=== PATIENT | female | born 1965 | race Caucasian/White ===

== ENCOUNTER 2018-04-29 21:45 | Inpatient (IN) | payer BC ==
--- NOTE | 2018-04-29 21:48 | PDOC ---
History of Present Illness - General Chief Complaint: Altered Mental Status Stated Complaint: CONFUSED Time Seen by Provider: 04/29/18 21:48 History Source: Patient, Family (son) - History of Present Illness Initial Comments: 04/29/18 22:50 53F PMHx anxiety presenting with son because of concerns about AMS. Son saw his mother last normal at approx 4pm, then went to dinner with a colleague (told his mother where he was going) - upon his return, he found her to be confused, asking repetitive questions and having difficulty retaining information for more than 1-2 minutes. Was in usual state of health prior to this evening. No fever, no infectious sxs. 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 Pt has no insight into her AMS. Denies trauma. 04/29/18 22:54 Timing/Duration: 4-6 hours Past History - Past Medical History Allergies/Adverse Reactions: Allergies Allergy/AdvReac Type Severity Reaction Status Date / Time No Known Allergies Allergy Verified 04/29/18 21:55 Home Medications: Ambulatory Orders Clonazepam [Klonopin] 0.5 mg PO PRN 04/29/18 Irbesartan 04/29/18 Rosuvastatin Calcium [Crestor] 5 mg PO DAILY 04/29/18 Review of Systems - Review of Systems Able to Perform ROS?: Yes Constitutional: No: Chills, Fever HEENTM: No: Blurred Vision Respiratory: No: Cough, Shortness of Breath Cardiac (ROS): No: Chest Pain, Irregular Heart Rate, Lightheadedness, Palpitations : No: Burning, Dysuria Musculoskeletal: No: Back Pain Neurological: No: Headache, Numbness, Seizure, Tingling, Tremors, Weakness, Unsteady Gait, Ataxia, Dizziness Psychiatric: Yes: Anxiety *Physical Exam - Physical Exam General Appearance: Yes: Appropriately Dressed, Other (anxious appearing) HEENT: positive: EOMI, Normal ENT Inspection, Normal Voice, Symmetrical Neck: positive: Trachea midline Respiratory/Chest: positive: Lungs Clear, Normal Breath Sounds. negative: Respiratory Distress Cardiovascular: positive: Regular Rhythm, Regular Rate Gastrointestinal/Abdominal: positive: Soft. negative: Tender, Organomegaly, Distended, Guarding Musculoskeletal: positive: Normal Inspection Neurologic: positive: sugar drier II-XII NML intact, Fully Oriented, Alert, Normal Response, Motor Strength 03/22 ED Treatment Course - LABORATORY CBC & Chemistry Diagram: 04/29/18 22:35 04/29/18 22:35 Medical Decision Making - Medical Decision Making 04/29/18 22:56 Pt presenting to ER with concerns from son about AMS - perseverating and confused at home, last normal approx 4:30pm. No fever, +elevated BP, anxious appearing and requesting to leave. - CTH - labs - u tox - UA - reassess, if still altered will likely require admission for AMS 04/30/18 00:42 Pt still AOx3, however is confused - repeatedly asks the same questions, forgets that she has met providers and had extensive conversations. BP elevated , concern for HTN emergency/possibly PRES. Will require neuro consult/ICU admission. Will give labetalol IVP. 04/30/18 00:55 Spoke to Maninder, ICU [facility] at [facility] - accepted to ICU for hypertensive emergency, AMS. *DC/Admit/Observation/Transfer Diagnosis at time of Disposition: Hypertensive encephalopathy - Discharge Dispostion Condition at time of disposition: Stable Decision to Admit order: Yes - Referrals - Patient Instructions - Post Discharge Activity
[2018-04-29 22:47] LABS: URINE APPEARANCE Clear; URINE BILIRUBIN Negative (NEGATIVE); URINE BLOOD Negative (NEGATIVE); URINE GLUCOSE (UA) Negative (NEGATIVE); URINE KETONE Negative (NEGATIVE); URINE NITRITE Negative (NEGATIVE); URINE PROTEIN Negative (NEGATIVE); URINE UROBILINOGEN 0.2 (0.2-1.0)
[2018-04-29 22:48] LABS: URINE COLOR YELLOW; URINE LEUK ESTERASE TRACE (NEGATIVE)
[2018-04-29 22:57] LABS: URINE BACTERIA FEW /hpf (NEGATIVE); URINE RBC 0-2 /hpf (0-3)
[2018-04-29 22:58] LABS: BASO % 0.6 % (0-2.0); EOS % 0.8 % (0-4.5); HEMATOCRIT 45.8 % (32.4-45.2); HEMOGLOBIN 15.5 GM/dl (10.7-15.3); LYMPH % 33.9 % (8-40); MCH 28.3 pg (25.7-33.7); MCHC 33.8 g/dl (32.0-36.0); MEAN CELL VOLUME 83.8 fl (80-96); MEAN PLT VOLUME 8.6 fl (7.5-11.1); MONO % 7.8 % (3.8-10.2); NEUT % 56.9 % (42.8-82.8); PLATELET COUNT 318 K/MM3 (134-434); RBC 5.47 M/mm3 (3.60-5.2); RDW 12.4 % (11.6-15.6); WHITE BLOOD COUNT 8.7 K/mm3 (4.0-10.8)
[2018-04-29 23:03] LABS: INR 1.02 (0.82-1.09); PROTHROMBIN TIME (PATIENT) 11.4 SEC (10.2-13.0)
[2018-04-29 23:08] LABS: ALBUMIN 3.9 g/dl (3.5-5.0); ALK PHOS 56 U/L (32-92); ANION GAP 9 (8-16); BILIRUBIN,TOTAL 1.5 mg/dl (0.2-1.0); BLOOD UREA NITROGEN 17 mg/dl (7-18); CALCIUM 9.4 mg/dl (8.4-10.2); CHLORIDE 104 mmol/L (98-107); CO2 25 mmol/L (22-28); CREATININE 0.9 mg/dl (0.6-1.3); GLUCOSE,RANDOM 121 mg/dl (74-106); SGOT/AST 22 U/L (10-42); SGPT/ALT 43 U/L (10-40); SODIUM 138 mmol/L (136-145); TOT PROT 6.6 g/dl (6.4-8.3)
[2018-04-30] MEDS ORDERED: LABETALOL HCL 5 MG/1 ML (100MG/20 ML VIAL) IVPUSH ONE (00:41)
[2018-04-30] MEDS ORDERED: LABETALOL HCL 5 MG/1 ML (100MG/20 ML VIAL) ONE (00:46)
[2018-04-30 00:52] LABS: COCAINE, UR NEGATIVE ng/ml (CUTOFF=300); METHADONE, UR NEGATIVE ng/ml (CUTOFF=300); OPIATES, URI NEGATIVE ng/ml (CUTOFF=300); PHENCYCLIDINE,URINE NEGATIVE ng/ml (CUTOFF=25); URINE AMPHETAMINES NEGATIVE ng/ml (CUTOFF=500); URINE BARBITURATES NEGATIVE ng/ml (CUTOFF=200); URINE BENZODIAZEPINES NEGATIVE ng/ml (CUTOFF=200)
[2018-04-30 03:08] VITALS: BMI 18.1
[2018-04-30] MEDS ORDERED: LACTATED RINGERS SOLUTION 1,000 ML/1,000 ML INFUS.BAG IV STA ×2 (03:37→04:24)
[2018-04-30] MEDS ORDERED: clonazePAM 2 MG TABLET PO ONE (03:39)
[2018-04-30] MEDS ORDERED: clonazePAM 0.5 MG TABLET PO ONE (03:45)
--- NOTE | 2018-04-30 03:51 | CONSULT ---
Consult Consult Specialty:: PULM/CCM Referred by:: Dr. Ronald Henson Reason for Consultation:: Diarrhea/Dehydration/Delerium - History of Present Illness Chief Complaint: AMS History of Present Illness: Ms. Hernandez is a 53 y/o woman w/ HTN, HL, & anxiety who presents to [facility] w/ AMS. A/p report pt was found by son at home delirious: asking repetitive questions and having difficulty retaining information for more than 1-2 minutes. No focal neuro deficit. Of note pt is on Day 07/28 Biaxin for bronchitis which is giving her profuse diarrhea. In addition, the pt has recently completed a 5 day course of Pred for her bronchitis. The pt also states that she was using Et-OH 4 nights in the past & fell & hit her head. The pt also endorses extra stress in her life. NCHCT negative. ICU bed requested w/ c/f PRES vs HTN emergency vs viral encephalopathy. Of note, pt reveals that throughout the past few nights she has had cramping in her calfs. U/a arrival to the ICU pt CA+OX3 w/ no sign of AMS. - History Source History Provided By: Patient, Family Member, Medical Record Limitations to Obtaining History: No Limitations - Past Medical History [employer]: Yes: Other (REPORTED AMS) Cardio/Vascular: Yes: HTN. No: CAD Pulmonary: Yes: Bronchitis Gastrointestinal: Yes: Other (diarrhea) Hepatobiliary: No: Cirrhosis Renal/: No: Renal Inusuff ...: No Heme/Onc: No: Anemia Infectious Disease: No: HIV Psych: Yes: Anxiety Rheumatology: No: Rheumatoid Arthritis Endocrine: No: Diabetes Mellitus - Alcohol/Substance Use Hx Alcohol Use: Yes History of Substance Use: reports: None - Smoking History Smoking history: Current some day smoker Have you smoked in the past 12 months: Yes - Social History Usual Living Arrangement: With Child ADL: Independent Place of : [place] History of Recent Travel: No Home Medications - Allergies Allergies/Adverse Reactions: Allergies Allergy/AdvReac Type Severity Reaction Status Date / Time No Known Allergies Allergy Verified 04/29/18 21:55 - Home Medications Home Medications: Ambulatory Orders Clonazepam [Klonopin] 0.5 mg PO PRN 04/29/18 Irbesartan 04/29/18 Rosuvastatin Calcium [Crestor] 5 mg PO DAILY 04/29/18 Family Disease History - Family Disease History Family History: Unremarkable Review of Systems - Review of Systems Constitutional: reports: No Symptoms Eyes: reports: No Symptoms HENT: reports: No Symptoms, Ocular Prosthesis Neck: denies: Decreased ROM, Pain on Movement, Stiffness Cardiovascular: reports: No Symptoms Respiratory: reports: Cough. denies: SOB Gastrointestinal: reports: Abdominal Pain, Diarrhea Genitourinary: reports: No Symptoms Breasts: reports: No Symptoms Reported Musculoskeletal: reports: Muscle Cramps Neurological: reports: Confusion, Headache Endocrine: reports: No Symptoms Hematology/Lymphatic: reports: No Symptoms Psychiatric: reports: Anxiety Pain Intensity: 2 Physical Exam Vital Signs: Vital Signs Temperature 97.1 F L 04/30/18 02:15 Pulse Rate 80 04/30/18 02:15 Respiratory Rate 17 04/30/18 02:15 Blood Pressure 146/98 04/30/18 02:15 O2 Sat by Pulse Oximetry (%) 98 04/30/18 02:15 Constitutional: Yes: Well Nourished, No Distress, Calm Eyes: Yes: WNL, Conjunctiva Clear, EOM Intact HENT: Yes: WNL, Atraumatic, Normocephalic Neck: Yes: WNL, Supple, Trachea Midline Cardiovascular: Yes: Regular Rate and Rhythm Respiratory: Yes: WNL, Regular, CTA Bilaterally Gastrointestinal: Yes: Hyperactive Bowel Sounds ...Rectal Exam: Yes: Deferred Renal/: No: CVA Tenderness - Left, CVA Tenderness - Right, Polyuria Breast(s): Yes: WNL Musculoskeletal: Yes: Muscle Pain. No: Back Pain, Joint Stiffness Extremities: Yes: WNL Edema: No Peripheral Pulses WNL: Yes Integumentary: Yes: WNL Neurological: Yes: WNL, Alert, Oriented ...Motor Strength: WNL Psychiatric: Yes: WNL Labs: CBC, BMP 04/29/18 22:35 04/29/18 22:35 Imaging - Results Chest X-ray: Image Reviewed (Clear (My Read)) Cat Scan: Report Reviewed (04/29: No gross evidence of a focal intracranial lesion or hemorrhage is seen.) EKG: Image Reviewed (RSR @ 82 w/o ectopy, possible L atrial enlargement, qu'ed out in V1 & V2 (unknown age), no specific ST or T-wave aberration, QTc = 434ms ( My Read).) Assessment/Plan ASSESS: This is a 53 y/o woman w/ HTN, HL, & anxiety who presents now w/ delirium-like AMS in the setting of Abx, diarrhea, & heavy stress m/l combo of dehydration/diarrhea & stress. PLAN: -D/c Biaxin -SuppFio2 prn for an SpO2 FiO2 > 92% -Nebs -IVFs -Send C-Diff -F/u clxrs -Monitor UOP -Replete e-lytes prn -Consider MRI Brain -NEURO -Cont irbesartan -Cont Crestor -Can have Klonopin prn for her anxiey -DVT ppx -D/c --> Floor DGL, ACNP-BC [facility] ICU PULM/CCM [id number]
--- NOTE | 2018-04-30 07:15 | PN ---
Physical Exam: SUBJECTIVE: Patient seen and examined at bed side in ICU presented with AMS , last time seen on her usual state of health around 4.30 pm yesterday had bronchitis last week and treated with biaxin and steroids that affect her sleep and increased her anxiety had fell last Saturday and hit her head images came back negative from another facility hasa history of anxiety and follow up with her psychiatrist denies any headache dizziness light headedness fever , chills, N/V/ but report diarrheax4 for 7 days OBJECTIVE: Vital Signs Period Temp Pulse Resp BP Sys/Marc Pulse Ox Last 24 Hr 97.1 F-98.5 F 71-100 15-20 133-173/88-111 98-100 GENERAL:AAOx3 in NAD HEAD: NC/AT EYES: PERRL,EOMI , sclera anicteric, conjunctiva clear. ENT: Ears normal, nares patent, oropharynx clear without exudates, moist mucous membranes. NECK: Trachea midline, full range of motion, supple. LUNGS: Breath sounds equal, clear to auscultation bilaterally, no wheezes, no crackles, no accessory muscle use. HEART: Regular rate and rhythm, S1, S2 without murmur, rub or gallop. ABDOMEN: Soft, nontender, nondistended, normoactive bowel sounds, no guarding, no rebound, EXTREMITIES: 2+ pulses, warm, well-perfused, no edema. NEUROLOGICAL: Cranial nerves II through XII grossly intact. Normal speech, normal gait , rombergg negative , nose finger negative PSYCH: Normal mood, normal affect. SKIN: Warm, dry, normal turgor, Laboratory Results - last 24 hr 04/29/18 04/29/18 04/29/18 22:35 22:35 22:35 WBC 8.7 RBC 5.47 H Hgb 15.5 H Hct 45.8 H MCV 83.8 MCH 28.3 MCHC 33.8 RDW 12.4 Plt Count 318 MPV 8.6 Absolute Neuts (auto) 4.9 Neutrophils % 56.9 Lymphocytes % 33.9 Monocytes % 7.8 Eosinophils % 0.8 Basophils % 0.6 PT with INR 11.4 INR 1.02 Sodium 138 Potassium 4.0 Chloride 104 Carbon Dioxide 25 Anion Gap 9 BUN 17 Creatinine 0.9 Creat Clearance w eGFR > 60 Random Glucose 121 H Calcium 9.4 Total Bilirubin 1.5 H AST 22 ALT 43 H Alkaline Phosphatase 56 Total Protein 6.6 Albumin 3.9 Urine Color Urine Appearance Urine pH Ur Specific [place] Urine Protein Urine Glucose (UA) Urine Ketones Urine Blood Urine Nitrite Urine Bilirubin Urine Urobilinogen Ur Leukocyte Esterase Urine RBC Urine WBC Urine Bacteria Opiates Screen Methadone Screen Barbiturate Screen Phencyclidine Screen Ur Amphetamines Screen MDMA (Ecstasy) Screen Benzodiazepines Screen Cocaine Screen U Marijuana (THC) Screen 04/29/18 04/29/18 22:42 22:42 WBC RBC Hgb Hct MCV MCH MCHC RDW Plt Count MPV Absolute Neuts (auto) Neutrophils % Lymphocytes % Monocytes % Eosinophils % Basophils % PT with INR INR Sodium Potassium Chloride Carbon Dioxide Anion Gap BUN Creatinine Creat Clearance w eGFR Random Glucose Calcium Total Bilirubin AST ALT Alkaline Phosphatase Total Protein Albumin Urine Color Yellow Urine Appearance Clear Urine pH 7.0 Ur Specific [place] 1.015 Urine Protein Negative Urine Glucose (UA) Negative Urine Ketones Negative Urine Blood Negative Urine Nitrite Negative Urine Bilirubin Negative Urine Urobilinogen 0.2 Ur Leukocyte Esterase Trace H Urine RBC 0-2 Urine WBC 2-5 Urine Bacteria Few Opiates Screen Negative Methadone Screen Negative Barbiturate Screen Negative Phencyclidine Screen Negative Ur Amphetamines Screen Negative MDMA (Ecstasy) Screen Negative Benzodiazepines Screen Negative Cocaine Screen Negative U Marijuana (THC) Screen Negative CBC, BMP 04/29/18 22:35 04/29/18 22:35 ASSESSMENT/PLAN: 53 year old female with pmhx of anxiety, HTN, HLD, presented to the ED by her son due to AMS , last seen on her [facility] state of health around 4.30 pm yesterday, was admitted to [facility] for further evaluation Neurology #AMS resolved due to med side effects prednison and Biaxin vs electrolytes imbalance vs meningitis un likely vs residual head trauma vs TIA vs panic attack AAOx3 , neck supple , dc prednison and biaxin Monitor BMP IV fluids C.diff (pt had diarrhea last week 4 times aday water non blood no mucus ) Vt head negative for acute pathology f/u with her psychiatrist for anxiety no need for LP for now # GI Diarrhea 4 times a day for almost a week , no BM since last night IV fluids C diff Stool ova and paracytes f/u as out pt with her PCP #Cardiology HTN presented with BP 173/111 labetolol 100 mg po once (we don't have irbesartan in house ) # Insominia on klonapine 0.5 HS Sleep hygiene excercise daily #FEN F: NS @ 100 CC/hr E: monitor N: low sodium diet #Proph DVts: SCDS both legs with early ambulation GI: no need for now #Dispo transfer to the floor , possible DC home today Visit type - Emergency Visit Emergency Visit: Yes ED Registration Date: 04/30/18 Care time: The patient presented to the Emergency Department on the above date and was hospitalized for further evaluation of their emergent condition. - New Patient This patient is new to me today: Yes Date on this admission: 04/30/18 - Critical Care Critical Care patient: Yes Total Critical Care Time (in minutes): 45 Critical Care Statement: The care of this patient involved high complexity decision making to prevent further life threatening deterioration of the patient 's condition and/or to evaluate & treat vital organ system(s) failure or risk of failure.
--- NOTE | 2018-04-30 08:14 | HP ---
CHIEF COMPLAINT: PCP: HISTORY OF PRESENT ILLNESS: Ms. Hernandez is a 53 y/o woman w/ HTN, HL, & anxiety who presents to [facility] w/ AMS. A/p report pt was found by son at home delirious: asking repetitive questions and having difficulty retaining information for more than 1-2 minutes. No focal neuro deficit. Of note pt is on Day 9 Biaxin for bronchitis which is giving her profuse diarrhea. In addition, the pt has recently completed a 5 day course of Pred for her bronchitis. The pt also states that she was using Et-OH 4 nights in the past & fell & hit her head. The pt also endorses extra stress in her life. NCHCT negative. ICU bed requested w/ c/f PRES vs HTN emergency vs viral encephalopathy. Of note, pt reveals that throughout the past few nights she has had cramping in her calfs. U/a arrival to the ICU pt CA+OX3 w/ no sign of AMS. ER course was notable for: (1) (2) (3) Recent Travel: PAST MEDICAL HISTORY: PAST SURGICAL HISTORY: Social History: Smoking: Alcohol: Drugs: Family History: Allergies No Known Allergies Allergy (Verified 04/29/18 21:55) HOME MEDICATIONS: Home Medications Medication Instructions Recorded Clonazepam [Klonopin] 0.5 mg PO PRN 04/29/18 Irbesartan 04/29/18 Rosuvastatin Calcium [Crestor] 5 mg PO DAILY 04/29/18 REVIEW OF SYSTEMS CONSTITUTIONAL: Absent: fever, chills, diaphoresis, generalized weakness, malaise, loss of appetite, weight change HEENT: Absent: rhinorrhea, nasal congestion, throat pain, throat swelling, difficulty swallowing, mouth swelling, ear pain, eye pain, visual changes CARDIOVASCULAR: Absent: chest pain, syncope, palpitations, irregular heart rate, lightheadedness , peripheral edema RESPIRATORY: Absent: cough, shortness of breath, dyspnea with exertion, orthopnea, wheezing, stridor, hemoptysis GASTROINTESTINAL: Absent: abdominal pain, abdominal distension, nausea, vomiting, diarrhea, constipation, melena, hematochezia GENITOURINARY: Absent: dysuria, frequency, urgency, hesitancy, hematuria, flank pain, genital pain MUSCULOSKELETAL: Absent: myalgia, arthralgia, joint swelling, back pain, neck pain SKIN: Absent: rash, itching, pallor HEMATOLOGIC/IMMUNOLOGIC: Absent: easy bleeding, easy bruising, lymphadenopathy, frequent infections ENDOCRINE: Absent: unexplained weight gain, unexplained weight loss, heat intolerance, cold intolerance NEUROLOGIC: Absent: headache, focal weakness or paresthesias, dizziness, unsteady gait, seizure, mental status changes, bladder or bowel incontinence PSYCHIATRIC: Absent: anxiety, depression, suicidal or homicidal ideation, hallucinations. PHYSICAL EXAMINATION Vital Signs - 24 hr 04/29/18 04/30/18 04/30/18 22:00 00:41 01:12 Temperature 98.5 F Pulse Rate 100 H Pulse Rate [ 87 83 Right Radial] Respiratory 16 20 16 Rate Blood Pressure 143/104 Blood Pressure 173/111 140/100 [Right Arm] O2 Sat by Pulse 100 100 100 Oximetry (%) 04/30/18 04/30/18 04/30/18 02:15 04:00 06:06 Temperature 97.1 F L 97.2 F L Pulse Rate 80 71 71 Pulse Rate [ Right Radial] Respiratory 17 15 15 Rate Blood Pressure 146/98 133/91 136/88 Blood Pressure [Right Arm] O2 Sat by Pulse 98 Oximetry (%) 04/30/18 07:22 Temperature Pulse Rate 79 Pulse Rate [ Right Radial] Respiratory 17 Rate Blood Pressure 160/102 Blood Pressure [Right Arm] O2 Sat by Pulse 100 Oximetry (%) GENERAL: Awake, alert, and fully oriented, in no acute distress. HEAD: Normal with no signs of trauma. EYES: Pupils equal, round and reactive to light, extraocular movements intact, sclera anicteric, conjunctiva clear. No lid lag. EARS, NOSE, THROAT: Ears normal, nares patent, oropharynx clear without exudates. Moist mucous membranes. NECK: Normal range of motion, supple without lymphadenopathy, JVD, or masses. LUNGS: Breath sounds equal, clear to auscultation bilaterally. No wheezes, and no crackles. No accessory muscle use. HEART: Regular rate and rhythm, normal S1 and S2 without murmur, rub or gallop. ABDOMEN: Soft, nontender, not distended, normoactive bowel sounds, no guarding, no rebound, no masses. No hepatomegaly or splenomegaly. MUSCULOSKELETAL: Normal range of motion at all joints. No bony deformities or tenderness. No CVA tenderness. UPPER EXTREMITIES: 2+ pulses, warm, well-perfused. No cyanosis. No clubbing. No peripheral edema. LOWER EXTREMITIES: 2+ pulses, warm, well-perfused. No calf tenderness. No peripheral edema. NEUROLOGICAL: Cranial nerves II-XII intact. Normal speech. Normal gait. PSYCHIATRIC: Cooperative. Good eye contact. Appropriate mood and affect. SKIN: Warm, dry, normal turgor, no rashes or lesions noted, normal capillary refill. Laboratory Results - last 24 hr 04/29/18 04/29/18 04/29/18 22:35 22:35 22:35 WBC 8.7 RBC 5.47 H Hgb 15.5 H Hct 45.8 H MCV 83.8 MCH 28.3 MCHC 33.8 RDW 12.4 Plt Count 318 MPV 8.6 Absolute Neuts (auto) 4.9 Neutrophils % 56.9 Lymphocytes % 33.9 Monocytes % 7.8 Eosinophils % 0.8 Basophils % 0.6 PT with INR 11.4 INR 1.02 Sodium 138 Potassium 4.0 Chloride 104 Carbon Dioxide 25 Anion Gap 9 BUN 17 Creatinine 0.9 Creat Clearance w eGFR > 60 Random Glucose 121 H Calcium 9.4 Total Bilirubin 1.5 H AST 22 ALT 43 H Alkaline Phosphatase 56 Total Protein 6.6 Albumin 3.9 Urine Color Urine Appearance Urine pH Ur Specific [place] Urine Protein Urine Glucose (UA) Urine Ketones Urine Blood Urine Nitrite Urine Bilirubin Urine Urobilinogen Ur Leukocyte Esterase Urine RBC Urine WBC Urine Bacteria Opiates Screen Methadone Screen Barbiturate Screen Phencyclidine Screen Ur Amphetamines Screen MDMA (Ecstasy) Screen Benzodiazepines Screen Cocaine Screen U Marijuana (THC) Screen 04/29/18 04/29/18 22:42 22:42 WBC RBC Hgb Hct MCV MCH MCHC RDW Plt Count MPV Absolute Neuts (auto) Neutrophils % Lymphocytes % Monocytes % Eosinophils % Basophils % PT with INR INR Sodium Potassium Chloride Carbon Dioxide Anion Gap BUN Creatinine Creat Clearance w eGFR Random Glucose Calcium Total Bilirubin AST ALT Alkaline Phosphatase Total Protein Albumin Urine Color Yellow Urine Appearance Clear Urine pH 7.0 Ur Specific [place] 1.015 Urine Protein Negative Urine Glucose (UA) Negative Urine Ketones Negative Urine Blood Negative Urine Nitrite Negative Urine Bilirubin Negative Urine Urobilinogen 0.2 Ur Leukocyte Esterase Trace H Urine RBC 0-2 Urine WBC 2-5 Urine Bacteria Few Opiates Screen Negative Methadone Screen Negative Barbiturate Screen Negative Phencyclidine Screen Negative Ur Amphetamines Screen Negative MDMA (Ecstasy) Screen Negative Benzodiazepines Screen Negative Cocaine Screen Negative U Marijuana (THC) Screen Negative ASSESSMENT/PLAN: ASSESS: This is a 53 y/o woman w/ HTN, HL, & anxiety who presents now w/ delirium-like AMS in the setting of Abx, diarrhea, & heavy stress m/l combo of dehydration/diarrhea & stress. PLAN: -D/c Biaxin -SuppFio2 prn for an SpO2 FiO2 > 92% -Nebs -IVFs -Send C-Diff -F/u clxrs -Monitor UOP -Replete e-lytes prn -Consider MRI Brain -NEURO -Cont irbesartan -Cont Crestor -Can have Klonopin prn for her anxiey -DVT ppx -D/c --> Floor Hospitalist Screening - Colonoscopy Questionnaire Colonoscopy Questionnaire: Colonoscopy Questionnaire
[2018-04-30] MEDS ORDERED: LOSARTAN POTASSIUM 50 MG TABLET (FP) PO ONE (09:30)
[2018-04-30] MEDS ORDERED: LABETALOL HCL 100 MG TABLET (FP) PO ONE (09:30)
[2018-04-30 10:23] VITALS: PULSE 74; TEMP 98.5
[2018-04-30 12:51] VITALS: BP 137/94
[2018-04-30] MEDS ORDERED: LOSARTAN POTASSIUM 50 MG TABLET (FP) PO SCH (14:00)
--- NOTE | 2018-05-01 11:12 | EKG ---
Test Reason : Blood Pressure : / mmHG Vent. Rate : 082 BPM Atrial Rate : 082 BPM P-R Int : 206 ms QRS Dur : 060 ms QT Int : 372 ms P-R-T Axes : 060 018 037 degrees QTc Int : 434 ms NORMAL SINUS RHYTHM POSSIBLE LEFT ATRIAL ENLARGEMENT SEPTAL INFARCT , AGE UNDETERMINED ABNORMAL ECG NO PREVIOUS ECGS AVAILABLE Confirmed by OKSANA GUTHRIE MD ([id number]) on 05/01/2018 11:12:00 AM Referred By: MD BLACK Confirmed By:OKSANA GUTHRIE MD
== END 2018-04-30 14:45 | disposition home or self-care (01) | DRG 948 ==
LOC: FER 21:45 → JICU 04-30 02:00
PROVIDERS: ADMIT Internal Medicine; ATTEND Nurse Practitioner Acute Care
DX: R41.82 Altered mental status, unspecified (principal); R19.7 Diarrhea, unspecified; E78.5 Hyperlipidemia, unspecified; F41.9 Anxiety disorder, unspecified; J40 Bronchitis, not specified as acute or chronic; F17.210 Nicotine dependence, cigarettes, uncomplicated; E86.0 Dehydration; G47.00 Insomnia, unspecified; T38.0X5A Adverse effect of glucocorticoids and synthetic analogues, initial encounter
CPT/HCPCS: 36415; 70450-TC; 71046-TC-FY; 80053; 80307; 81003; 81015; 85025; 85610; 87086; 87899; 93005; 93010; 99282-25